=== PATIENT | male | born 1945 | race Caucasian/White ===

== ENCOUNTER → 2018-07-26 | Outpatient (CLI) | payer OTHER ==
[~2018-07-26] MED LIST: ALFU10TA PO; ASPI-621 PO; CHOL200052 PO; CYANOCOBALAMIN PO; DICL75TA2 PO; IBUP200T64 PO; TESTOSTERONE TP; VARD20TA2 PO
[2018-07-26 10:34] LABS: MICROSCOPIC NOT IND
[2018-07-26 10:37] LABS: CULTURE INDICATED? NO
[2018-07-26 10:38] LABS: BASOPHILS # (AUTO) 0.08 x10^3/uL (0-0.1); BASOPHILS % (AUTO) 1 % (0-1); EOSINOPHILS # (AUTO) 0.24 x10^3/uL (0-0.4); EOSINOPHILS % (AUTO) 4 % (1-7); LYMPHOCYTES % (AUTO) 21 % (22-44); MD NO; MEAN CORPUSCULAR HEMOGLOBIN 36.1 pg (27.5-34.5); MEAN CORPUSCULAR HGB CONC 34.8 g/dL (33.2-36.2); MEAN CORPUSCULAR VOLUME 103.8 fL (81-97); MEAN PLATELET VOLUME 8.1 fL (7.4-10.4); MONOCYTES # (AUTO) 0.39 x10^3/uL (0.2-0.8); MONOCYTES % (AUTO) 6 % (2-9); NEUTROPHILS # (AUTO) 4.64 x10^3/uL (1.8-6.8); NEUTROPHILS % (AUTO) 69 % (42-75); PLATELET COUNT 160 x10^3/uL (130-400); PROTHROMBIN TIME 10.3 Seconds (9.6-11.5); RED BLOOD COUNT 5.07 x10^6/uL (4.38-5.82); RED CELL DISTRIBUTION WIDTH 14.2 % (9.4-14.8)
[2018-07-26 10:40] LABS: ANION GAP 5 mmol/L (5-15); CALCIUM 8.4 mg/dL (8.5-10.1); CHLORIDE 108 mmol/L (98-107); CREATININE 0.95 mg/dL (0.7-1.3)
== END | disposition home or self-care (01) ==
LOC: STAR 09:18
PROVIDERS: ATTEND Neurological Surgery
DX: Z01.818 Encounter for other preprocedural examination (principal); M43.8X6 Other specified deforming dorsopathies, lumbar region; M47.897 Other spondylosis, lumbosacral region
CPT/HCPCS: 36415; 71046; 72114; 80048; 81003; 85025; 85610; 85730; 93005

== ENCOUNTER 2018-08-02 07:00 | Inpatient (IN) | payer OTHER ==
[~2018-08-02] VITALS: Ht 177.8 cm; Wt 72.1 kg
[~2018-08-02 07:00] MED LIST changes: +BACITRACIN 50,000 UNIT ONE; +BUPIVACAINE/PF-EPI 0.5% 1:200K ONE; +THROMBIN 20,000 UNIT VIAL TP ONE
[2018-08-02] MEDS ORDERED: LACTATED RINGERS 1,000 ML IV SCH (07:25)
[2018-08-02] MEDS ORDERED: OxyconTIN ER 10 MG TAB.ER PO ONE (07:30)
[2018-08-02] MEDS ORDERED: ACETAMINOPHEN 500 MG TABLET PO ONE (07:30)
[2018-08-02] MEDS ORDERED: GABAPENTIN 300 MG CAPSULE PO ONE (07:30)
[2018-08-02 07:33] VITALS: BP 170/90
[2018-08-02] MEDS ORDERED: FENTANYL PF 250 MCG/5ML ONE (08:11)
[2018-08-02] MEDS ORDERED: MIDAZOLAM 1 MG/ML, 2ML ONE (08:11)
[2018-08-02] MEDS ORDERED: GLYCOPYRROLATE 0.4 MG/2 ML, 2ML ONE (08:12)
[2018-08-02] MEDS ORDERED: NEOSTIGMINE 1 MG/ML, 10ML ONE (08:12)
[2018-08-02] MEDS ORDERED: ROCURONIUM 10MG/ML,5ML ONE (08:12)
[2018-08-02] MEDS ORDERED: SODIUM CHLORIDE 0.9% PF 10ML ONE (08:13)
[2018-08-02] MEDS ORDERED: CEFAZOLIN 1,000 MG ONE ×2 (08:13)
[2018-08-02] MEDS ORDERED: PROPOFOL 10 MG/ML, 20ML ONE (08:13)
[2018-08-02] MEDS ORDERED: PROPOFOL 50 ML ONE ×3 (09:09→10:57)
[2018-08-02] MEDS ORDERED: PHENYLEPHRINE 10 MG/ML ONE (09:25)
[2018-08-02] MEDS ORDERED: FENTANYL PF 100 MCG/2ML IV PRN (09:30)
[2018-08-02] MEDS ORDERED: LABETALOL 5MG/ML, 20ML IV PRN (09:30)
[2018-08-02] MEDS ORDERED: PROMETHAZINE 25 MG/ML, 1ML IM PRN ×3 (09:30→12:30)
[2018-08-02] MEDS ORDERED: ALBUTEROL SULFATE 2.5 MG/3 ML NPPB PRN (09:30)
[2018-08-02] MEDS ORDERED: hydrALAzine 20 MG/ML, 1ML IV PRN (09:30)
[2018-08-02] MEDS ORDERED: ONDANSETRON 2MG/ML, 2ML IV PRN (09:30)
[2018-08-02] MEDS ORDERED: OXYcodone 5 MG/5 ML ORAL.SOL UDC PO PRN (09:30)
[2018-08-02] MEDS ORDERED: PROMETHAZINE 25 MG/ML, 1ML IV PRN (09:30)
[2018-08-02] MEDS ORDERED: ONDANSETRON ODT 8 MG PO PRN (09:30)
[2018-08-02] MEDS ORDERED: MEPERIDINE/PF 50 MG/ML ONE (12:28)
[2018-08-02] MEDS ORDERED: HYDROmorphone 2 MG/ML, 1ML ONE (12:29)
[2018-08-02] MEDS ORDERED: OXYcodone/APAP 5/325MG TABLET PO PRN (12:30)
[2018-08-02] MEDS ORDERED: PHARMACY MAY ADJ FOR RENAL FX MC PRN (12:30)
[2018-08-02] MEDS ORDERED: DIPHENHYDRAMINE 50 MG/ML, 1ML IVPush PRN (12:30)
[2018-08-02] MEDS: CEFAZOLIN PMX 1GM/50ML 50 ML IVPB SCH ×2 (12:30→20:47)
[2018-08-02] MEDS: D5%-0.9% NACL+KCL 20MEQ 1,000 ML IV SCH ×2 (12:30→22:38)
[2018-08-02] MEDS ORDERED: BISACODYL 10 MG SUPP PR PRN (12:30)
[2018-08-02] MEDS: MEPERIDINE/PF 25MG/0.5ML IVPush PRN ×2 (12:31→12:58)
[2018-08-02] MEDS ORDERED: OXYcodone 5 MG/5 ML ORAL.SOL UDC ONE (12:51)
[2018-08-02] MEDS: HYDROmorphone 1 MG/ML, 1ML IV PRN ×4 (12:51→13:38)
[2018-08-02 15:09] VITALS: BP 137/88
[2018-08-02 18:32] VITALS: BP 145/74
[2018-08-02] MEDS: ONDANSETRON 2MG/ML, 2ML IVPush PRN (19:37)
[2018-08-02] MEDS: TAMSULOSIN 0.4 MG CAP.ER.24H PO SCH (20:47)
[2018-08-03 00:06] VITALS: BP 131/70
[2018-08-03] MEDS: HYDROcodone/APAP 5/325 TABLET PO PRN ×2 (04:14→05:40)
[2018-08-03] MEDS ORDERED: CEFAZOLIN 1,000 MG IVPB ONE (04:30)
[2018-08-03] MEDS ORDERED: CEFAZOLIN PMX 1GM/50ML 50 ML IV ONE (04:30)
[2018-08-03 04:46] VITALS: BP 142/77
[2018-08-03 07:44] VITALS: BP 132/66
[2018-08-03] MEDS: CYCLOBENZAPRINE 10 MG TABLET PO PRN ×2 (08:30→17:41)
[2018-08-03] MEDS: CYANOCOBALAMIN 1,000 MCG TABLET PO SCH (08:31)
[2018-08-03] MEDS: PUMP TP SCH (08:31)
[2018-08-03] MEDS: ONDANSETRON 2MG/ML, 2ML IVPush PRN (09:20)
[2018-08-03] MEDS: morphine SULFATE 10 MG/ML, 1ML IVPush PRN ×4 (12:31→21:14)
[2018-08-03] MEDS: D5%-0.9% NACL+KCL 20MEQ 1,000 ML IV SCH (13:24)
[2018-08-03 14:25] VITALS: BP 123/67
[2018-08-03] MEDS: OXYcodone IR 5MG TABLET PO PRN ×2 (16:12→19:20)
[2018-08-03] MEDS: CEFAZOLIN PMX 1GM/50ML 50 ML IVPB SCH (17:08)
[2018-08-03 19:43] VITALS: BP 150/72
[2018-08-03] MEDS: TAMSULOSIN 0.4 MG CAP.ER.24H PO SCH (20:11)
[2018-08-03] MEDS: HYDROcodone/APAP 10/325 MG TABLET PO PRN (22:23)
[2018-08-04] MEDS: CEFAZOLIN PMX 1GM/50ML 50 ML IVPB SCH ×3 (00:53→17:00)
[2018-08-04 01:00] VITALS: BP 132/77
[2018-08-04] MEDS: CYCLOBENZAPRINE 10 MG TABLET PO PRN ×2 (02:03→22:26)
[2018-08-04] MEDS: D5%-0.9% NACL+KCL 20MEQ 1,000 ML IV SCH ×2 (03:47→18:31)
[2018-08-04] MEDS: HYDROcodone/APAP 10/325 MG TABLET PO PRN ×5 (05:27→21:38)
[2018-08-04] MEDS: morphine SULFATE 10 MG/ML, 1ML IVPush PRN (06:49)
[2018-08-04] MEDS: CYANOCOBALAMIN 1,000 MCG TABLET PO SCH (08:59)
[2018-08-04] MEDS: PUMP TP SCH (08:59)
[2018-08-04 15:11] VITALS: BP 156/74
[2018-08-04 20:00] VITALS: BP 134/73
[2018-08-04] MEDS: TAMSULOSIN 0.4 MG CAP.ER.24H PO SCH (21:05)
[2018-08-05] VITALS (13 sets, daily range): BP systolic 119–154; BP diastolic 72–90
[2018-08-05] MEDS: morphine SULFATE 10 MG/ML, 1ML IVPush PRN ×3 (00:37→19:54)
[2018-08-05] MEDS: CEFAZOLIN PMX 1GM/50ML 50 ML IVPB SCH ×3 (00:43→16:09)
[2018-08-05] MEDS: HYDROcodone/APAP 10/325 MG TABLET PO PRN ×4 (02:16→20:25)
[2018-08-05] MEDS: D5%-0.9% NACL+KCL 20MEQ 1,000 ML IV SCH ×2 (07:10→19:54)
[2018-08-05] MEDS: OXYcodone IR 5MG TABLET PO PRN (07:55)
[2018-08-05] MEDS: CYANOCOBALAMIN 1,000 MCG TABLET PO SCH (07:55)
[2018-08-05] MEDS: PUMP TP SCH (07:55)
[2018-08-05] MEDS: CYCLOBENZAPRINE 10 MG TABLET PO PRN ×2 (07:55→16:21)
[2018-08-05 14:10] LABS: BASOPHILS # (AUTO) 0.03 x10^3/uL (0-0.1); BASOPHILS % (AUTO) 0 % (0-1); EOSINOPHILS # (AUTO) 0.11 x10^3/uL (0-0.4); EOSINOPHILS % (AUTO) 1 % (1-7); LYMPHOCYTES # (AUTO) 1.27 x10^3/uL (1-3.4); LYMPHOCYTES % (AUTO) 12 % (22-44); MD NO; MEAN CORPUSCULAR HEMOGLOBIN 35.9 pg (27.5-34.5); MEAN CORPUSCULAR HGB CONC 34.7 g/dL (33.2-36.2); MEAN CORPUSCULAR VOLUME 103.5 fL (81-97); MEAN PLATELET VOLUME 7.8 fL (7.4-10.4); MONOCYTES # (AUTO) 0.69 x10^3/uL (0.2-0.8); MONOCYTES % (AUTO) 6 % (2-9); NEUTROPHILS % (AUTO) 81 % (42-75); PLATELET COUNT 136 x10^3/uL (130-400); RED BLOOD COUNT 4.12 x10^6/uL (4.38-5.82); RED CELL DISTRIBUTION WIDTH 13.1 % (9.4-14.8)
[2018-08-05 14:20] LABS: INTERNATIONAL NORMALIZED RATIO 1.02 (0.93-1.1); PROTHROMBIN TIME 10.5 Seconds (9.6-11.5)
[2018-08-05 14:21] LABS: ALANINE AMINOTRANSFERASE 31 U/L (12-78); ALBUMIN 3.1 g/dL (3.4-5.0); ANION GAP 7 mmol/L (5-15); CALCIUM 8.1 mg/dL (8.5-10.1); CHLORIDE 98 mmol/L (98-107); CREATININE 0.83 mg/dL (0.7-1.3)
[2018-08-05 14:24] LABS: ALKALINE PHOSPHATASE 59 U/L (45-117); BILIRUBIN,TOTAL 1.1 mg/dL (0.2-1.0); TOTAL PROTEIN 6.7 g/dL (6.4-8.2)
[2018-08-05] MEDS ORDERED: LORazepam 1MG TABLET PO PRN (15:00)
[2018-08-05] MEDS: LORazepam 0.5MG TABLET PO PRN (16:21)
[2018-08-05] MEDS: TAMSULOSIN 0.4 MG CAP.ER.24H PO SCH (19:54)
[2018-08-05] MEDS: SENNA/DOCUSATE TABLET PO PRN (19:54)
[2018-08-05] MEDS: LORazepam 1MG TABLET PO PRN (21:05)
[2018-08-06] MEDS: CEFAZOLIN PMX 1GM/50ML 50 ML IVPB SCH ×3 (01:13→18:41)
[2018-08-06 02:52] VITALS: BP_SYST 134; BP_SYST 171; BP_DIAS 77; BP_DIAS 81
[2018-08-06] MEDS: LORazepam 1MG TABLET PO PRN ×2 (03:06→22:39)
[2018-08-06] MEDS: HYDROcodone/APAP 5/325 TABLET PO PRN ×4 (06:34→22:39)
[2018-08-06 08:00] VITALS: BP 143/89
[2018-08-06] MEDS ORDERED: MAGNESIUM CITRATE 300ML ORAL SOL PO ONE (09:30)
[2018-08-06] MEDS: PUMP TP SCH (09:31)
[2018-08-06] MEDS: CYANOCOBALAMIN 1,000 MCG TABLET PO SCH (09:31)
[2018-08-06] MEDS ORDERED: HYDR-3307 PO (09:35)
[2018-08-06] MEDS ORDERED: TAMS0.4C2 PO (09:55)
[2018-08-06] MEDS ORDERED: CYCL-259 PO (09:56)
[2018-08-06] MEDS ORDERED: SENN-87 PO (09:57)
[2018-08-06] MEDS ORDERED: CEPH-368 PO (09:57)
[2018-08-06] MEDS: D5%-0.9% NACL+KCL 20MEQ 1,000 ML IV SCH ×2 (10:36→20:02)
[2018-08-06 14:00] VITALS: BP 158/90
[2018-08-06] MEDS: CYCLOBENZAPRINE 10 MG TABLET PO PRN (18:46)
[2018-08-06 19:10] VITALS: BP 143/81
[2018-08-06] MEDS: TAMSULOSIN 0.4 MG CAP.ER.24H PO SCH (20:01)
[2018-08-07 01:25] VITALS: BP 158/76
[2018-08-07] MEDS: CEFAZOLIN PMX 1GM/50ML 50 ML IVPB SCH ×3 (02:05→18:26)
[2018-08-07] MEDS: LORazepam 1MG TABLET PO PRN ×3 (02:09→13:09)
[2018-08-07] MEDS: LORazepam 0.5MG TABLET PO PRN (04:12)
[2018-08-07 07:11] VITALS: BP 152/99
[2018-08-07 08:42] LABS: BASOPHILS # (AUTO) 0.04 x10^3/uL (0-0.1); BASOPHILS % (AUTO) 1 % (0-1); EOSINOPHILS # (AUTO) 0.33 x10^3/uL (0-0.4); EOSINOPHILS % (AUTO) 4 % (1-7); LYMPHOCYTES # (AUTO) 0.89 x10^3/uL (1-3.4); LYMPHOCYTES % (AUTO) 11 % (22-44); MD NO; MEAN CORPUSCULAR HEMOGLOBIN 35.2 pg (27.5-34.5); MEAN CORPUSCULAR HGB CONC 34.5 g/dL (33.2-36.2); MEAN CORPUSCULAR VOLUME 102.1 fL (81-97); MEAN PLATELET VOLUME 7.3 fL (7.4-10.4); MONOCYTES # (AUTO) 0.42 x10^3/uL (0.2-0.8); MONOCYTES % (AUTO) 5 % (2-9); NEUTROPHILS # (AUTO) 6.27 x10^3/uL (1.8-6.8); NEUTROPHILS % (AUTO) 79 % (42-75); PLATELET COUNT 175 x10^3/uL (130-400); RED BLOOD COUNT 4.41 x10^6/uL (4.38-5.82); RED CELL DISTRIBUTION WIDTH 13.5 % (9.4-14.8)
[2018-08-07 08:49] LABS: ANION GAP 8 mmol/L (5-15); CALCIUM 8.9 mg/dL (8.5-10.1); CHLORIDE 102 mmol/L (98-107); CREATININE 0.68 mg/dL (0.7-1.3)
[2018-08-07] MEDS: PUMP TP SCH (09:00)
[2018-08-07] MEDS: CYANOCOBALAMIN 1,000 MCG TABLET PO SCH (09:28)
[2018-08-07] MEDS: HYDROcodone/APAP 10/325 MG TABLET PO PRN ×2 (10:47→13:09)
[2018-08-07] MEDS ORDERED: LORazepam 2 MG/ML, 1ML IVPush ONE (12:30)
[2018-08-07] MEDS: D5%-0.9% NACL+KCL 20MEQ 1,000 ML IV SCH (13:00)
[2018-08-07 13:41] VITALS: BP 145/99
[2018-08-07] MEDS: CHLORDIAZEPOXIDE 25 MG CAPSULE PO PRN (16:57)
[2018-08-07] MEDS: LORazepam 2 MG/ML, 1ML IVPush PRN ×2 (16:57→22:05)
[2018-08-07] MEDS: GABAPENTIN 100 MG CAPSULE PO SCH ×2 (17:30→21:49)
[2018-08-07 19:19] VITALS: BP 170/86
[2018-08-07 20:36] VITALS: BP 146/89
[2018-08-07] MEDS: TAMSULOSIN 0.4 MG CAP.ER.24H PO SCH (21:49)
[2018-08-08 01:28] VITALS: BP 149/92
[2018-08-08] MEDS: CEFAZOLIN PMX 1GM/50ML 50 ML IVPB SCH ×3 (01:51→18:34)
[2018-08-08] MEDS: D5%-0.9% NACL+KCL 20MEQ 1,000 ML IV SCH (02:20)
[2018-08-08] MEDS: LORazepam 2 MG/ML, 1ML IVPush PRN (03:22)
[2018-08-08] MEDS: CHLORDIAZEPOXIDE 25 MG CAPSULE PO PRN (04:10)
[2018-08-08] MEDS: GABAPENTIN 100 MG CAPSULE PO SCH ×2 (06:00→09:48)
[2018-08-08 08:25] VITALS: BP 166/88
[2018-08-08 08:56] LABS: BASOPHILS # (AUTO) 0.02 x10^3/uL (0-0.1); BASOPHILS % (AUTO) 0 % (0-1); EOSINOPHILS # (AUTO) 0.31 x10^3/uL (0-0.4); EOSINOPHILS % (AUTO) 4 % (1-7); LYMPHOCYTES # (AUTO) 1.04 x10^3/uL (1-3.4); LYMPHOCYTES % (AUTO) 12 % (22-44); MD NO; MEAN CORPUSCULAR HEMOGLOBIN 35.2 pg (27.5-34.5); MEAN CORPUSCULAR HGB CONC 34.4 g/dL (33.2-36.2); MEAN CORPUSCULAR VOLUME 102.3 fL (81-97); MEAN PLATELET VOLUME 7.2 fL (7.4-10.4); MONOCYTES # (AUTO) 0.43 x10^3/uL (0.2-0.8); MONOCYTES % (AUTO) 5 % (2-9); NEUTROPHILS # (AUTO) 6.88 x10^3/uL (1.8-6.8); NEUTROPHILS % (AUTO) 79 % (42-75); PLATELET COUNT 212 x10^3/uL (130-400); RED BLOOD COUNT 4.69 x10^6/uL (4.38-5.82); RED CELL DISTRIBUTION WIDTH 13.1 % (9.4-14.8)
[2018-08-08] MEDS ORDERED: CHLORDIAZEPOXIDE 25 MG CAPSULE PO SCH (09:00)
[2018-08-08] MEDS: PUMP TP SCH (09:00)
[2018-08-08 09:02] LABS: ANION GAP 10 mmol/L (5-15); CALCIUM 8.8 mg/dL (8.5-10.1); CHLORIDE 102 mmol/L (98-107); CREATININE 0.68 mg/dL (0.7-1.3)
[2018-08-08] MEDS: CYANOCOBALAMIN 1,000 MCG TABLET PO SCH (09:48)
[2018-08-08] MEDS ORDERED: MAGNESIUM HYDROXIDE 8%, 30ML UDC PO ONE (10:00)
[2018-08-08 11:56] LABS: O2 FLOW 1 L/min
[2018-08-08 12:07] LABS: CHLORIDE 102 mmol/L (98-107)
[2018-08-08 12:23] LABS: ALANINE AMINOTRANSFERASE 38 U/L (12-78); ALBUMIN 3.8 g/dL (3.4-5.0); ALKALINE PHOSPHATASE 77 U/L (45-117); ANION GAP 10 mmol/L (5-15); BILIRUBIN,TOTAL 1.1 mg/dL (0.2-1.0); CALCIUM 8.7 mg/dL (8.5-10.1); CREATININE 0.63 mg/dL (0.7-1.3); TOTAL PROTEIN 7.6 g/dL (6.4-8.2)
[2018-08-08 14:06] VITALS: BP 147/83
[2018-08-08 18:55] VITALS: BP 153/82
[2018-08-08] MEDS ORDERED: IBUPROFEN 200 MG TABLET PO ONE (20:30)
[2018-08-08] MEDS: TAMSULOSIN 0.4 MG CAP.ER.24H PO SCH (20:31)
[2018-08-09 01:13] VITALS: BP 109/71
[2018-08-09] MEDS: CEFAZOLIN PMX 1GM/50ML 50 ML IVPB SCH ×3 (01:58→17:56)
[2018-08-09] MEDS: CYCLOBENZAPRINE 10 MG TABLET PO PRN ×2 (08:02→21:02)
[2018-08-09] MEDS: CYANOCOBALAMIN 1,000 MCG TABLET PO SCH (08:02)
[2018-08-09] MEDS: PUMP TP SCH (08:03)
[2018-08-09 08:35] VITALS: BP 147/76
[2018-08-09 09:16] LABS: BASOPHILS # (AUTO) 0.07 x10^3/uL (0-0.1); BASOPHILS % (AUTO) 1 % (0-1); EOSINOPHILS # (AUTO) 0.29 x10^3/uL (0-0.4); EOSINOPHILS % (AUTO) 3 % (1-7); LYMPHOCYTES # (AUTO) 1.22 x10^3/uL (1-3.4); LYMPHOCYTES % (AUTO) 14 % (22-44); MD NO; MEAN CORPUSCULAR HEMOGLOBIN 35.2 pg (27.5-34.5); MEAN CORPUSCULAR HGB CONC 34.6 g/dL (33.2-36.2); MEAN CORPUSCULAR VOLUME 101.8 fL (81-97); MEAN PLATELET VOLUME 7.3 fL (7.4-10.4); MONOCYTES # (AUTO) 0.44 x10^3/uL (0.2-0.8); MONOCYTES % (AUTO) 5 % (2-9); NEUTROPHILS # (AUTO) 6.64 x10^3/uL (1.8-6.8); NEUTROPHILS % (AUTO) 77 % (42-75); PLATELET COUNT 217 x10^3/uL (130-400); RED BLOOD COUNT 4.84 x10^6/uL (4.38-5.82); RED CELL DISTRIBUTION WIDTH 13.3 % (9.4-14.8)
[2018-08-09 09:22] LABS: ANION GAP 8 mmol/L (5-15); CALCIUM 9.2 mg/dL (8.5-10.1); CHLORIDE 103 mmol/L (98-107); CREATININE 0.82 mg/dL (0.7-1.3)
[2018-08-09 14:25] VITALS: BP 127/80
[2018-08-09 20:35] VITALS: BP 153/91
[2018-08-09] MEDS: TAMSULOSIN 0.4 MG CAP.ER.24H PO SCH (21:02)
[2018-08-09] MEDS: SENNA/DOCUSATE TABLET PO PRN (21:02)
[2018-08-10 01:04] VITALS: BP 113/74
[2018-08-10] MEDS ORDERED: IBUPROFEN 200 MG TABLET PO ONE (01:30)
[2018-08-10] MEDS: CEFAZOLIN PMX 1GM/50ML 50 ML IVPB SCH ×2 (01:42→09:13)
[2018-08-10 05:48] LABS: ANION GAP 5 mmol/L (5-15); BASOPHILS # (AUTO) 0.06 x10^3/uL (0-0.1); BASOPHILS % (AUTO) 1 % (0-1); CALCIUM 8.8 mg/dL (8.5-10.1); CHLORIDE 105 mmol/L (98-107); CREATININE 0.81 mg/dL (0.7-1.3); EOSINOPHILS # (AUTO) 0.32 x10^3/uL (0-0.4); EOSINOPHILS % (AUTO) 3 % (1-7); LYMPHOCYTES % (AUTO) 18 % (22-44); MD NO; MEAN CORPUSCULAR HEMOGLOBIN 35.6 pg (27.5-34.5); MEAN CORPUSCULAR HGB CONC 34.7 g/dL (33.2-36.2); MEAN CORPUSCULAR VOLUME 102.6 fL (81-97); MEAN PLATELET VOLUME 7.5 fL (7.4-10.4); MONOCYTES # (AUTO) 0.55 x10^3/uL (0.2-0.8); MONOCYTES % (AUTO) 6 % (2-9); NEUTROPHILS # (AUTO) 7.33 x10^3/uL (1.8-6.8); NEUTROPHILS % (AUTO) 73 % (42-75); PLATELET COUNT 219 x10^3/uL (130-400); RED BLOOD COUNT 4.64 x10^6/uL (4.38-5.82); RED CELL DISTRIBUTION WIDTH 13.1 % (9.4-14.8)
[2018-08-10 08:54] VITALS: BP 128/87
[2018-08-10] MEDS: CYANOCOBALAMIN 1,000 MCG TABLET PO SCH (09:12)
[2018-08-10] MEDS: CYCLOBENZAPRINE 10 MG TABLET PO PRN (09:12)
[2018-08-10] MEDS: PUMP TP SCH (09:15)
[2018-08-10 13:35] VITALS: BP 100/66
== END 2018-08-10 16:05 | DRG 519 ==
LOC: ORIP 07:08 → 4NOR 14:05
PROVIDERS: ADMIT Neurological Surgery; ATTEND Neurological Surgery
PROC: 4A11X4G Monitoring of Peripheral Nervous Electrical Activity, Intraoperative, External Approach (ICD-10-PCS; 2018-08-02)
PROC: 00UT0JZ Supplement Spinal Meninges with Synthetic Substitute, Open Approach (ICD-10-PCS; 2018-08-02)
PROC: 00QT0ZZ Repair Spinal Meninges, Open Approach (ICD-10-PCS; 2018-08-02)
PROC: 01NB0ZZ Release Lumbar Nerve, Open Approach (ICD-10-PCS; principal; 2018-08-02 10:00)
DX: M48.062 Spinal stenosis, lumbar region with neurogenic claudication (principal); G96.11 Dural tear; F10.239 Alcohol dependence with withdrawal, unspecified; K56.7 Ileus, unspecified; K59.00 Constipation, unspecified; M21.371 Foot drop, right foot; Z82.49 Family history of ischemic heart disease and other diseases of the circulatory system; Z83.6 Family history of other diseases of the respiratory system; I10 Essential (primary) hypertension; M54.16 Radiculopathy, lumbar region; Y84.8 Other medical procedures as the cause of abnormal reaction of the patient, or of later complication, without mention of misadventure at the time of the procedure; Y92.89 Other specified places as the place of occurrence of the external cause; Z79.899 Other long term (current) drug therapy; Z79.2 Long term (current) use of antibiotics; R26.9 Unspecified abnormalities of gait and mobility; G89.29 Other chronic pain; G47.33 Obstructive sleep apnea (adult) (pediatric)
CPT/HCPCS: 36415; 36600; 72100; 74018; 76700; 80048; 80053; 82140; 82803; 85025; 85610; 85730; G0378; J0690; J1170; J2175; J2250; J2405; J2704; J2710; J3010; C1781; J2060; J2270; J2370; J3480; J7120

== ENCOUNTER 2018-08-19 21:31 | Inpatient (IN) | payer OTHER ==
[~2018-08-19] VITALS: Ht 177.8 cm; Wt 93.0 kg
[~2018-08-19 21:31] MED LIST changes: -BACITRACIN 50,000 UNIT ONE; -BUPIVACAINE/PF-EPI 0.5% 1:200K ONE; +CEPH-368 PO; +CYCL-259 PO; +HYDR-3307 PO; +SENN-87 PO; +TAMS0.4C2 PO; -THROMBIN 20,000 UNIT VIAL TP ONE
[2018-08-19] MEDS ORDERED: TRAM50TA2 PO (21:45)
[2018-08-19] MEDS ORDERED: ONDANSETRON 2MG/ML, 2ML ONE (22:26)
[2018-08-19] MEDS ORDERED: ONDANSETRON 2MG/ML, 2ML IVPush PRN (22:30)
[2018-08-19] MEDS ORDERED: MORPHINE SULFATE 4 MG/ML, 1ML IVPush PRN (22:30)
[2018-08-19] MEDS ORDERED: ONDANSETRON 2MG/ML, 2ML IVPush ONE (22:30)
[2018-08-19] MEDS ORDERED: ZOLPIDEM 5MG TABLET PO PRN (23:00)
[2018-08-19] MEDS ORDERED: hydrALAzine 20 MG/ML, 1ML IVPush PRN (23:00)
[2018-08-19] MEDS ORDERED: OXYcodone IR 5MG TABLET PO PRN (23:00)
[2018-08-19] MEDS ORDERED: VANCOMYCIN PER PHARMACY MC PRN (23:00)
[2018-08-19] MEDS: LACTATED RINGERS 1,000 ML IV SCH (23:38)
[2018-08-20 00:13] VITALS: BP 118/78
[2018-08-20] MEDS: AMPICILLIN/SULBACTAM 3 GM in SODIUM CHLORIDE 0.9% 100 ML IV SCH ×4 (01:17→23:08)
[2018-08-20] MEDS ORDERED: PHARMACOKINETIC MONITORING MC PRN (01:30)
[2018-08-20] MEDS ORDERED: PHARMACOKINETIC CONSULTATION MC ONE (01:30)
[2018-08-20] MEDS: VANCOMYCIN 1,700 MG in SODIUM CHLORIDE 0.9% 250 ML IV SCH (01:51)
[2018-08-20 03:03] VITALS: BP 115/76
[2018-08-20 05:17] LABS: MEAN CORPUSCULAR HEMOGLOBIN 35.5 pg (27.5-34.5); MEAN CORPUSCULAR HGB CONC 34.8 g/dL (33.2-36.2); MEAN CORPUSCULAR VOLUME 101.9 fL (81-97); MEAN PLATELET VOLUME 8.3 fL (7.4-10.4); PLATELET COUNT 211 x10^3/uL (130-400); RED BLOOD COUNT 4.14 x10^6/uL (4.38-5.82); RED CELL DISTRIBUTION WIDTH 13.1 % (9.4-14.8)
[2018-08-20 05:21] LABS: ALBUMIN 3.1 g/dL (3.4-5.0); ANION GAP 6 mmol/L (5-15); CALCIUM 8.4 mg/dL (8.5-10.1); CHLORIDE 101 mmol/L (98-107)
[2018-08-20 05:26] LABS: ALANINE AMINOTRANSFERASE 23 U/L (12-78); ALKALINE PHOSPHATASE 73 U/L (45-117); BILIRUBIN,TOTAL 1.1 mg/dL (0.2-1.0); CREATININE 0.86 mg/dL (0.7-1.3); TOTAL PROTEIN 6.3 g/dL (6.4-8.2)
[2018-08-20 06:16] LABS: BASOPHILS # (AUTO) 0.04 x10^3/uL (0-0.1); BASOPHILS % (AUTO) 0 % (0-1); EOSINOPHILS # (AUTO) 0.09 x10^3/uL (0-0.4); EOSINOPHILS % (AUTO) 0 % (1-7); LYMPHOCYTES # (AUTO) 2.24 x10^3/uL (1-3.4); LYMPHOCYTES % (AUTO) 11 % (22-44); MD SCAN; MONOCYTES # (AUTO) 1.14 x10^3/uL (0.2-0.8); MONOCYTES % (AUTO) 6 % (2-9); NEUTROPHILS # (AUTO) 16.79 x10^3/uL (1.8-6.8); NEUTROPHILS % (AUTO) 83 % (42-75)
[2018-08-20] MEDS: CHOLECALCIFEROL 1,000 UNIT TABLET PO SCH (07:29)
[2018-08-20] MEDS: TAMSULOSIN 0.4 MG CAP.ER.24H PO SCH (07:29)
[2018-08-20] MEDS: POLYETHYLENE GLYCOL 17 GM PACKET PO SCH (07:29)
[2018-08-20] MEDS: LACTATED RINGERS 1,000 ML IV SCH ×2 (07:30→12:59)
[2018-08-20 07:36] VITALS: BP 127/78
[2018-08-20 10:02] LABS: INTERNATIONAL NORMALIZED RATIO 1.08 (0.93-1.1); PROTHROMBIN TIME 11.2 Seconds (9.6-11.5)
[2018-08-20] MEDS: KETOROLAC 30 MG/1 ML IV PRN ×2 (10:55→21:05)
[2018-08-20 13:23] VITALS: BP 119/75
[2018-08-20 14:04] LABS: MICROSCOPIC NOT IND
[2018-08-20 14:15] LABS: CULTURE INDICATED? NO
[2018-08-20] MEDS: morphine SULFATE 10 MG/ML, 1ML IVPush PRN (15:15)
[2018-08-20] MEDS ORDERED: MIDAZOLAM 1 MG/ML, 2ML ONE (17:30)
[2018-08-20] MEDS ORDERED: FENTANYL PF 250 MCG/5ML ONE (17:30)
[2018-08-20] MEDS ORDERED: GLYCOPYRROLATE 0.2MG/1ML, 5ML ONE (17:31)
[2018-08-20] MEDS ORDERED: SUCCINYLCHOLINE 20 MG/ML, 10ML ONE (17:31)
[2018-08-20] MEDS ORDERED: ONDANSETRON 2MG/ML, 2ML ONE (17:31)
[2018-08-20] MEDS ORDERED: ROCURONIUM 10MG/ML,5ML ONE (17:31)
[2018-08-20] MEDS ORDERED: PROPOFOL 10 MG/ML, 20ML ONE (17:31)
[2018-08-20] MEDS ORDERED: DEXAMETHASONE 4 MG/ML, 1ML ONE (17:31)
[2018-08-20] MEDS ORDERED: NEOSTIGMINE 1 MG/ML, 10ML ONE (17:31)
[2018-08-20] MEDS ORDERED: CEFAZOLIN 1,000 MG ONE (17:31)
[2018-08-20] MEDS ORDERED: BACITRACIN 50,000 UNIT ONE (17:32)
[2018-08-20] MEDS ORDERED: BUPIVACAINE/PF-EPI 0.25% 1:200K ONE (17:32)
[2018-08-20] MEDS ORDERED: VANCOMYCIN 1,000 MG ONE (17:49)
[2018-08-20] MEDS ORDERED: MORPHINE SULFATE 4 MG/ML, 1ML IVPush PRN (18:00)
[2018-08-20] MEDS ORDERED: hydrALAzine 20 MG/ML, 1ML IV PRN (18:00)
[2018-08-20] MEDS ORDERED: ONDANSETRON ODT 8 MG PO PRN (18:00)
[2018-08-20] MEDS ORDERED: MEPERIDINE/PF 25MG/0.5ML IVPush PRN (18:00)
[2018-08-20] MEDS ORDERED: PROMETHAZINE 25 MG/ML, 1ML IM PRN ×3 (18:00→19:00)
[2018-08-20] MEDS ORDERED: PROMETHAZINE 25 MG/ML, 1ML IV PRN (18:00)
[2018-08-20] MEDS ORDERED: PROMETHAZINE 25 MG SUPP PR PRN (18:00)
[2018-08-20] MEDS ORDERED: OXYcodone 5 MG/5 ML ORAL.SOL UDC PO PRN (18:00)
[2018-08-20] MEDS ORDERED: ONDANSETRON 2MG/ML, 2ML IV PRN (18:00)
[2018-08-20] MEDS ORDERED: PROMETHAZINE 12.5 MG SUPP PR PRN (18:00)
[2018-08-20] MEDS ORDERED: HYDROmorphone 1 MG/ML, 1ML IV PRN (18:00)
[2018-08-20] MEDS ORDERED: LABETALOL 5MG/ML, 20ML IV PRN (18:00)
[2018-08-20] MEDS ORDERED: HYDROcodone/APAP 10/325 MG TABLET PO PRN (19:00)
[2018-08-20] MEDS ORDERED: SENNA/DOCUSATE TABLET PO PRN (19:00)
[2018-08-20] MEDS ORDERED: HYDROcodone/APAP 5/325 TABLET PO PRN (19:00)
[2018-08-20] MEDS ORDERED: PHARMACY MAY ADJ FOR RENAL FX MC PRN (19:00)
[2018-08-20] MEDS ORDERED: morphine SULFATE 10 MG/ML, 1ML IVPush PRN (19:00)
[2018-08-20] MEDS ORDERED: BISACODYL 10 MG SUPP PR PRN (19:00)
[2018-08-20] MEDS ORDERED: ONDANSETRON 2MG/ML, 2ML IVPush PRN (19:00)
[2018-08-20] MEDS ORDERED: FENTANYL PF 100 MCG/2ML ONE (19:13)
[2018-08-20] MEDS ORDERED: OXYcodone 5 MG/5 ML ORAL.SOL UDC ONE (19:13)
[2018-08-20] MEDS: FENTANYL PF 100 MCG/2ML IV PRN ×3 (19:15→19:45)
[2018-08-20 20:30] VITALS: BP 102/64
[2018-08-21 00:38] VITALS: BP 106/57
[2018-08-21] MEDS: LACTATED RINGERS 1,000 ML IV SCH ×3 (02:00→21:58)
[2018-08-21] MEDS: VANCOMYCIN 1,700 MG in SODIUM CHLORIDE 0.9% 250 ML IV SCH (02:45)
[2018-08-21 04:14] VITALS: BP 102/55
[2018-08-21] MEDS: AMPICILLIN/SULBACTAM 3 GM in SODIUM CHLORIDE 0.9% 100 ML IV SCH ×4 (04:37→23:54)
[2018-08-21 04:47] LABS: BASOPHILS # (AUTO) 0.13 x10^3/uL (0-0.1); BASOPHILS % (AUTO) 1 % (0-1); EOSINOPHILS # (AUTO) 0.14 x10^3/uL (0-0.4); EOSINOPHILS % (AUTO) 1 % (1-7); LYMPHOCYTES # (AUTO) 1.96 x10^3/uL (1-3.4); LYMPHOCYTES % (AUTO) 15 % (22-44); MD NO; MEAN CORPUSCULAR HEMOGLOBIN 35.6 pg (27.5-34.5); MEAN CORPUSCULAR VOLUME 101.8 fL (81-97); MEAN PLATELET VOLUME 7.9 fL (7.4-10.4); MONOCYTES # (AUTO) 0.92 x10^3/uL (0.2-0.8); MONOCYTES % (AUTO) 7 % (2-9); NEUTROPHILS # (AUTO) 9.74 x10^3/uL (1.8-6.8); NEUTROPHILS % (AUTO) 76 % (42-75); PLATELET COUNT 200 x10^3/uL (130-400); RED BLOOD COUNT 3.91 x10^6/uL (4.38-5.82)
[2018-08-21 04:53] LABS: ALANINE AMINOTRANSFERASE 20 U/L (12-78); ALBUMIN 2.9 g/dL (3.4-5.0); ANION GAP 5 mmol/L (5-15); CALCIUM 8.6 mg/dL (8.5-10.1); CHLORIDE 106 mmol/L (98-107)
[2018-08-21 04:56] LABS: ALKALINE PHOSPHATASE 63 U/L (45-117); BILIRUBIN,TOTAL 0.7 mg/dL (0.2-1.0); TOTAL PROTEIN 5.9 g/dL (6.4-8.2)
[2018-08-21] MEDS: KETOROLAC 30 MG/1 ML IV PRN ×3 (04:59→17:06)
[2018-08-21] MEDS: morphine SULFATE 10 MG/ML, 1ML IVPush PRN ×5 (05:11→21:09)
[2018-08-21 07:37] VITALS: BP 103/54
[2018-08-21] MEDS: TAMSULOSIN 0.4 MG CAP.ER.24H PO SCH (08:59)
[2018-08-21] MEDS: POLYETHYLENE GLYCOL 17 GM PACKET PO SCH (09:00)
[2018-08-21] MEDS: CHOLECALCIFEROL 1,000 UNIT TABLET PO SCH (09:00)
[2018-08-21 12:49] VITALS: BP 114/60
[2018-08-21] MEDS: ACETAMINOPHEN 325 MG TABLET PO PRN ×3 (13:24→23:54)
[2018-08-21] MEDS: ONDANSETRON 2MG/ML, 2ML IVPush PRN (13:40)
[2018-08-21] MEDS: CYCLOBENZAPRINE 10 MG TABLET PO PRN (13:51)
[2018-08-21 15:39] LABS: HCT (SEDRATE) 40.2 % (39.2-51.8)
[2018-08-21 19:33] VITALS: BP 123/71
[2018-08-22] MEDS: morphine SULFATE 10 MG/ML, 1ML IVPush PRN ×4 (00:28→10:15)
[2018-08-22] MEDS: CYCLOBENZAPRINE 10 MG TABLET PO PRN ×3 (00:35→20:39)
[2018-08-22 01:53] VITALS: BP 107/64
[2018-08-22] MEDS: VANCOMYCIN 1,700 MG in SODIUM CHLORIDE 0.9% 250 ML IV SCH (02:45)
[2018-08-22 05:01] LABS: BASOPHILS # (AUTO) 0.07 x10^3/uL (0-0.1); BASOPHILS % (AUTO) 1 % (0-1); EOSINOPHILS # (AUTO) 0.23 x10^3/uL (0-0.4); EOSINOPHILS % (AUTO) 3 % (1-7); LYMPHOCYTES # (AUTO) 1.58 x10^3/uL (1-3.4); LYMPHOCYTES % (AUTO) 18 % (22-44); MD NO; MEAN CORPUSCULAR HEMOGLOBIN 35.2 pg (27.5-34.5); MEAN CORPUSCULAR HGB CONC 34.7 g/dL (33.2-36.2); MEAN CORPUSCULAR VOLUME 101.4 fL (81-97); MEAN PLATELET VOLUME 7.9 fL (7.4-10.4); MONOCYTES # (AUTO) 0.47 x10^3/uL (0.2-0.8); MONOCYTES % (AUTO) 5 % (2-9); NEUTROPHILS # (AUTO) 6.62 x10^3/uL (1.8-6.8); NEUTROPHILS % (AUTO) 74 % (42-75); PLATELET COUNT 207 x10^3/uL (130-400); RED CELL DISTRIBUTION WIDTH 12.9 % (9.4-14.8)
[2018-08-22 05:05] LABS: ALBUMIN 2.7 g/dL (3.4-5.0); CALCIUM 8.4 mg/dL (8.5-10.1); CHLORIDE 107 mmol/L (98-107)
[2018-08-22 05:13] LABS: ALANINE AMINOTRANSFERASE 19 U/L (12-78); ALKALINE PHOSPHATASE 59 U/L (45-117); ANION GAP 6 mmol/L (5-15); BILIRUBIN,TOTAL 0.4 mg/dL (0.2-1.0); CREATININE 0.69 mg/dL (0.7-1.3); TOTAL PROTEIN 5.7 g/dL (6.4-8.2)
[2018-08-22] MEDS: AMPICILLIN/SULBACTAM 3 GM in SODIUM CHLORIDE 0.9% 100 ML IV SCH ×3 (05:44→22:00)
[2018-08-22 07:24] VITALS: BP 141/84
[2018-08-22] MEDS: TAMSULOSIN 0.4 MG CAP.ER.24H PO SCH (10:15)
[2018-08-22] MEDS: POLYETHYLENE GLYCOL 17 GM PACKET PO SCH (10:15)
[2018-08-22] MEDS: CHOLECALCIFEROL 1,000 UNIT TABLET PO SCH (10:15)
[2018-08-22] MEDS: LACTATED RINGERS 1,000 ML IV SCH (10:16)
[2018-08-22] MEDS: OXYcodone/APAP 5/325MG TABLET PO PRN ×3 (12:32→18:38)
[2018-08-22] MEDS: ONDANSETRON 2MG/ML, 2ML IVPush PRN (12:32)
[2018-08-22 13:53] VITALS: BP 125/71
[2018-08-22] MEDS ORDERED: MICAFUNGIN 100 MG in SODIUM CHLORIDE 0.9% 100 ML IV SCH (18:30)
[2018-08-22 21:39] VITALS: BP 118/62
[2018-08-23 02:10] VITALS: BP 121/70
[2018-08-23] MEDS ORDERED: VANCOMYCIN 1,700 MG in SODIUM CHLORIDE 0.9% 250 ML IV SCH ×2 (02:30→17:00)
[2018-08-23] MEDS: OXYcodone/APAP 5/325MG TABLET PO PRN ×3 (02:35→16:43)
[2018-08-23] MEDS: AMPICILLIN/SULBACTAM 3 GM in SODIUM CHLORIDE 0.9% 100 ML IV SCH ×2 (03:54→10:18)
[2018-08-23] MEDS: CYCLOBENZAPRINE 10 MG TABLET PO PRN (06:05)
[2018-08-23 08:19] VITALS: BP 152/87
[2018-08-23] MEDS: POLYETHYLENE GLYCOL 17 GM PACKET PO SCH (10:18)
[2018-08-23] MEDS: CHOLECALCIFEROL 1,000 UNIT TABLET PO SCH (10:18)
[2018-08-23] MEDS: TAMSULOSIN 0.4 MG CAP.ER.24H PO SCH (10:18)
[2018-08-23] MEDS ORDERED: DAPTOMYCIN 550 MG in SODIUM CHLORIDE 0.9% 100 ML IVPB SCH (12:00)
[2018-08-23] MEDS ORDERED: DAPT500V6 IV (12:54)
[2018-08-23] MEDS ORDERED: MICA100V3 IV (12:54)
[2018-08-23 15:32] VITALS: BP 163/90
[2018-08-23] MEDS ORDERED: OXYC-302 PO (17:29)
== END 2018-08-23 18:00 | DRG 856 ==
LOC: ED 22:03 → EDIP 22:29 → SUATTDRO 22:34 → 3NE 08-20 00:51 → 4NOR 08-20 17:22
PROVIDERS: ADMIT Hospitalist; ATTEND Family Medicine
PROC: 0WBL0ZZ Excision of Lower Back, Open Approach (ICD-10-PCS; 2018-08-19)
PROC: 00JU0ZZ Inspection of Spinal Canal, Open Approach (ICD-10-PCS; 2018-08-20)
PROC: 5A09357 Assistance with Respiratory Ventilation, Less than 24 Consecutive Hours, Continuous Positive Airway Pressure (ICD-10-PCS; 2018-08-20)
PROC: 0J970ZZ Drainage of Back Subcutaneous Tissue and Fascia, Open Approach (ICD-10-PCS; principal; 2018-08-20 17:45)
PROC: 5A09357 Assistance with Respiratory Ventilation, Less than 24 Consecutive Hours, Continuous Positive Airway Pressure (ICD-10-PCS; 2018-08-21)
PROC: 5A09357 Assistance with Respiratory Ventilation, Less than 24 Consecutive Hours, Continuous Positive Airway Pressure (ICD-10-PCS; 2018-08-22)
PROC: 02HV33Z Insertion of Infusion Device into Superior Vena Cava, Percutaneous Approach (ICD-10-PCS; 2018-08-23)
PROC: B5181ZA Fluoroscopy of Superior Vena Cava using Low Osmolar Contrast, Guidance (ICD-10-PCS; 2018-08-23)
PROC: B548ZZA Ultrasonography of Superior Vena Cava, Guidance (ICD-10-PCS; 2018-08-23)
PROC: 5A09357 Assistance with Respiratory Ventilation, Less than 24 Consecutive Hours, Continuous Positive Airway Pressure (ICD-10-PCS; 2018-08-23)
DX: T81.42XA Infection following a procedure, deep incisional surgical site, initial encounter (principal); A41.9 Sepsis, unspecified organism; T81.30XA Disruption of wound, unspecified, initial encounter; L03.312 Cellulitis of back [any part except buttock and flank]; D75.89 Other specified diseases of blood and blood-forming organs; G89.29 Other chronic pain; Y83.8 Other surgical procedures as the cause of abnormal reaction of the patient, or of later complication, without mention of misadventure at the time of the procedure; M21.371 Foot drop, right foot; M47.816 Spondylosis without myelopathy or radiculopathy, lumbar region; M48.061 Spinal stenosis, lumbar region without neurogenic claudication; N40.0 Benign prostatic hyperplasia without lower urinary tract symptoms; Z79.2 Long term (current) use of antibiotics; Z82.49 Family history of ischemic heart disease and other diseases of the circulatory system; Z82.5 Family history of asthma and other chronic lower respiratory diseases; Y92.89 Other specified places as the place of occurrence of the external cause
CPT/HCPCS: 36415; 77001; 87106; 99285; J3490; 36569; 71045; 76937; 80053; 80202; 81003; 83735; 84100; 85025; 85610; 85651; 85730; 86140; 87070; 87075; 87077; 87102; 87186; 87205; 93005; 96374; G0378; J0295; J0690; J0878; J1100; J1885; J2248; J2250; J2405; J2704; J2710; J3010; J3370; C1751; J0330; J2270; J7050; J7120